=== PATIENT | female | born 2000 | race Caucasian/White ===

== ENCOUNTER 2022-09-25 15:17 | Emergency (ER) | payer BC, MEDICAID, SELFPAY ==
[2022-09-25] MEDS ORDERED: Ondansetron PF 4 MG/2 ML Vial ONE (16:02)
[2022-09-25 16:19] LABS: #Basophils 0.1 10x3/uL (0.0-0.2); #Monocytes 0.8 10x3/uL (0.0-1.1); #Neutrophils 8.4 10x3/uL (1.5-8.4); %Basophils 0.4 % (0.0-2.0); %Eosinophils 0.2 % (0.0-6.0); %Lymphocytes 21.4 % (18.0-47.0); %Neutrophils 70.7 % (40.0-75.0); Hemoglobin 12.5 g/dL (12.0-15.5); Mean Corpuscular HGB CONC 33.2 g/dL (32.0-36.0); Mean Corpuscular Hemoglobin 26.1 pg (27.0-33.0); Mean Corpuscular Volume 78.5 fl (81.6-98.3); Mean Platelet Volume 9.6 fl (7.4-10.4); Platelet Count 366 10x3/uL (150-450); RBC Distribution Width 13.7 % (11.5-14.5); Red Blood Cell (RBC) Count 4.79 10x6/uL (3.90-5.03); White Blood Cell (WBC) Count 11.9 10x3/uL (3.5-10.5)
[2022-09-25 16:45] LABS: ALT (SGPT) 31 U/L (8-55); AST (SGOT) 19 U/L (5-34); Albumin 4.1 g/dL (3.5-5.0); Alkaline Phosphatase 52 U/L (40-110); Anion Gap 11 mmol/L (10-20); BUN (Urea Nitrogen) 7 mg/dL (7.0-18.7); Bilirubin, Total 0.4 mg/dL (0.2-1.2); Calc. Creatinine Clearance 0 mL/min (70-130); Calcium 9.1 mg/dL (7.8-10.44); Carbon Dioxide 23 mmol/L (22-29); Chloride 106 mmol/L (98-107); Estimated GFR 126; Globulin 2.9 g/dL (2.4-3.5); Glucose 82 mg/dL (70-105); Magnesium 1.8 mg/dL (1.6-2.6); Potassium 3.7 mmol/L (3.5-5.1); Sodium 136 mmol/L (136-145)
== END 2022-09-25 17:29 | disposition home or self-care (01) ==
LOC: CSHERS 15:17
DX: O21.0 Mild hyperemesis gravidarum (principal); O9A.211 Injury, poisoning and certain other consequences of external causes complicating pregnancy, first trimester; T63.301A Toxic effect of unspecified spider venom, accidental (unintentional), initial encounter; O99.711 Diseases of the skin and subcutaneous tissue complicating pregnancy, first trimester; L03.116 Cellulitis of left lower limb; Z87.891 Personal history of nicotine dependence; Z3A.01 Less than 8 weeks gestation of pregnancy
CPT/HCPCS: 80053; 83735; 85025; 96361; 96374; J2405

== ENCOUNTER 2023-04-04 23:02 | Emergency (ER) | payer MEDICAID, OTHER ==
[2023-04-04] MEDS ORDERED: Ondansetron ODT 4 MG TAB ONE (23:19)
[2023-04-05 00:17] LABS: SARS-CoV-2 NAA Rapid Test Not Detected (NotDetected)
== END 2023-04-05 00:36 | disposition home or self-care (01) ==
LOC: CSHERS 23:02
DX: O99.891 Other specified diseases and conditions complicating pregnancy (principal); R05.9 Cough, unspecified; R40.0 Somnolence; Z87.891 Personal history of nicotine dependence; Z3A.34 34 weeks gestation of pregnancy
CPT/HCPCS: 71045; Q0162

== ENCOUNTER 2023-05-09 07:56 | Inpatient (IN) | payer OTHER ==
[2023-05-09] MEDS ORDERED: Misoprostol 200 MCG TAB PR PRN (08:49)
[2023-05-09] MEDS ORDERED: Carboprost 250 MCG/ML AMP IM PRN (08:49)
[2023-05-09] MEDS ORDERED: Methylergonovine 0.2 MG/ML VIAL IM PRN (08:49)
[2023-05-09] MEDS ORDERED: Promethazine HCl 25 MG/ML VIAL IM PRN ×2 (08:49→11:44)
[2023-05-09] MEDS ORDERED: hydrALAZINE 20 MG/ML VIAL SLOW IVP PRN (08:49)
[2023-05-09] MEDS ORDERED: HYDROcodone/Acetaminophen 5/325 mg Tablet PO PRN (08:49)
[2023-05-09] MEDS ORDERED: Lidocaine 1% (PF) 30 ML VIAL SC PRN (08:49)
[2023-05-09] MEDS ORDERED: Diphenoxylate HCl/Atropine Tablet PO PRN (08:49)
[2023-05-09] MEDS ORDERED: fentaNYL 50 mcg/mL 1 mL Vial SLOW IVP PRN (08:49)
[2023-05-09] MEDS ORDERED: Tranexamic Acid 1,000 MG/10 ML VIAL IVP PRN (08:49)
[2023-05-09] MEDS ORDERED: Ibuprofen 800 MG TAB PO PRN (08:49)
[2023-05-09] MEDS ORDERED: Oxytocin 30 units/NS 500 ML 500 ML IV SCH ×2 (09:00)
[2023-05-09] MEDS: Lactated Ringer's 1,000 ML IV SCH (09:15)
[2023-05-09 09:19] VITALS: BMI 39.1
[2023-05-09] MEDS: fentaNYL/Ropivacaine Epidural 100 ML ONE (09:43)
[2023-05-09] MEDS: fentaNYL 2 mcg/Ropivacaine 0.2% Epidural 100 ML CADD EPIDURAL SCH (09:44)
[2023-05-09 09:47] LABS: Hematocrit 34.8 % (34.9-44.5); Hemoglobin 11.8 g/dL (12.0-15.5); Mean Corpuscular HGB CONC 33.9 g/dL (32.0-36.0); Mean Corpuscular Hemoglobin 25.7 pg (27.0-33.0); Mean Corpuscular Volume 75.8 fl (81.6-98.3); Mean Platelet Volume 10.6 fl (7.4-10.4); Platelet Count 371 10x3/uL (150-450); RBC Distribution Width 14.4 % (11.5-14.5); Red Blood Cell (RBC) Count 4.59 10x6/uL (3.90-5.03); White Blood Cell (WBC) Count 13.8 10x3/uL (3.5-10.5)
[2023-05-09 10:29] LABS: HBSAg Index 0.25 S/CO (0-0.99); Hep B Surf Ag - L&D Non-Reactive S/CO (NonReactive)
[2023-05-09 10:30] LABS: Syphilis Antibody Nonreactive (Nonreactive); Syphilis Antibody Index 0.04 S/CO (<1.00 Non-Reactive)
[2023-05-09] MEDS: Ondansetron PF 4 MG/2 ML Vial IVP PRN (10:57)
[2023-05-09] MEDS ORDERED: Acetaminophen 325 MG TAB PO PRN (11:44)
[2023-05-09] MEDS ORDERED: Naloxone HCl 0.4 mg/ml Vial IVP PRN ×2 (11:44)
[2023-05-09] MEDS ORDERED: diphenhydrAMINE 50 MG/ML VIAL IVP PRN (11:44)
[2023-05-09] MEDS ORDERED: Ondansetron PF 4 MG/2 ML Vial IVP PRN (11:44)
[2023-05-09] MEDS ORDERED: Moisturizing Cream (Eucerin) 113 GM JAR TOP PRN (11:44)
[2023-05-09] MEDS ORDERED: Lactated Ringer's 500 ML IV PRN (11:44)
[2023-05-09] MEDS ORDERED: ePHEDrine Sulfate 50 MG/10 ML VIAL SLOW IVP PRN (11:44)
[2023-05-09] MEDS ORDERED: Communication Order-Pharmacy FS SCH (11:45)
[2023-05-09 11:49] LABS: Creatinine, Urine 205.8 mg/dL (47-110)
[2023-05-09 12:15] LABS: ALT (SGPT) 23 U/L (8-55); AST (SGOT) 16 U/L (5-34); Albumin 3.4 g/dL (3.5-5.0); Alkaline Phosphatase 1492 U/L (40-110); Anion Gap 16 mmol/L (10-20); BUN (Urea Nitrogen) 9 mg/dL (7.0-18.7); Bilirubin, Total 0.2 mg/dL (0.2-1.2); Calc. Creatinine Clearance 265 mL/min (70-130); Calcium 8.6 mg/dL (7.8-10.44); Carbon Dioxide 17 mmol/L (22-29); Chloride 107 mmol/L (98-107); Estimated GFR 130; Globulin 2.8 g/dL (2.4-3.5); Glucose 93 mg/dL (70-105); Potassium 4.3 mmol/L (3.5-5.1); Protein, Total 6.2 g/dL (6.0-8.3); Sodium 136 mmol/L (136-145)
[2023-05-09] MEDS: Oxytocin 30 units/NS 500 ML 500 ML IV SCH (13:03)
[2023-05-09] MEDS: Acetaminophen 500 MG TAB PO PRN (19:13)
[2023-05-09] MEDS: Ampicillin 2 GM VIAL ONE (19:25)
[2023-05-09] MEDS ORDERED: Ampicillin 2 GM in Sodium Chloride 0.9% 100 ML IVPB SCH (19:30)
[2023-05-09] MEDS: SODIUM CHLORIDE IVPB SCH (20:01)
[2023-05-09] MEDS: ADMIXTURE FEE IVPB SCH (20:01)
[2023-05-09] MEDS: GENTAMICIN IVPB SCH (20:01)
[2023-05-10] MEDS ORDERED: diphenhydrAMINE 25 MG CAP PO PRN (01:34)
[2023-05-10] MEDS ORDERED: Bisacodyl 10 MG SUPP PR PRN (01:34)
[2023-05-10] MEDS ORDERED: Ondansetron PF 4 MG/2 ML Vial IVP PRN (01:34)
[2023-05-10] MEDS ORDERED: Lanolin Ointment 7 GM TUBE TOP PRN (01:34)
[2023-05-10] MEDS ORDERED: Benzocaine-Menthol 82.5 ML CAN TOP PRN (01:34)
[2023-05-10] MEDS ORDERED: hydrALAZINE 20 MG/ML VIAL SLOW IVP PRN (01:34)
[2023-05-10] MEDS ORDERED: Milk Of Magnesia 30 ML UDCUP PO PRN (01:34)
[2023-05-10] MEDS ORDERED: HYDROcodone/Acetaminophen 5/325 mg Tablet PO PRN (01:34)
[2023-05-10] MEDS: Ampicillin 2 GM in Sodium Chloride 0.9% 100 ML IVPB SCH (05:00)
[2023-05-10] MEDS: Ibuprofen 800 MG TAB PO SCH (05:07)
[2023-05-10] MEDS: Docusate 100 MG CAP PO SCH (08:23)
[2023-05-10] MEDS: Prenatal Vitamin 1 TAB PO SCH (08:23)
[2023-05-10] MEDS: Ferrous Sulfate 325 MG TAB PO SCH (08:23)
[2023-05-10] MEDS: Boostrix 0.5 ML (Tdap) VIAL (>/=7 yrs of age) IM ONE (08:58)
[2023-05-11 07:21] VITALS: BP 125/57; TEMP 98.3
== END 2023-05-11 15:05 | disposition home or self-care (01) | DRG 806 ==
LOC: CSHLD/OP 07:56 → CSHLD 09:40 → CSHPED 05-10 00:30
PROVIDERS: ADMIT Family Medicine; ATTEND Family Medicine
PROC: 10E0XZZ Delivery of Products of Conception, External Approach (ICD-10-PCS; principal; 2023-05-09)
PROC: 10907ZC Drainage of Amniotic Fluid, Therapeutic from Products of Conception, Via Natural or Artificial Opening (ICD-10-PCS; 2023-05-09)
PROC: 0UQMXZZ Repair Vulva, External Approach (ICD-10-PCS; 2023-05-09)
PROC: 0UQGXZZ Repair Vagina, External Approach (ICD-10-PCS; 2023-05-09)
DX: O71.82 Other specified trauma to perineum and vulva (principal); O71.4 Obstetric high vaginal laceration alone; Z37.0 Single live birth; Z3A.39 39 weeks gestation of pregnancy; Z91.040 Latex allergy status
CPT/HCPCS: 36415; 51702; 80053; 82570; 84156; 85027; 86780; 86850; 86900; 86901; 87340; 88307; 99285; J0290; J1580; J2405; J2590; J3490; J7120

== ENCOUNTER 2024-02-12 22:16 | Emergency (ER) | payer OTHER | END 2024-02-13 05:27 | disposition home or self-care (01) | LOC: CSHERS 22:16 | DX: J04.0 Acute laryngitis (principal); I10 Essential (primary) hypertension; F17.290 Nicotine dependence, other tobacco product, uncomplicated; Z79.82 Long term (current) use of aspirin | CPT/HCPCS: 99283 ==

== ENCOUNTER 2024-04-16 21:56 | Emergency (ER) | payer OTHER | END 2024-04-16 22:19 | disposition home or self-care (01) | LOC: CSHERS 21:56 | DX: R55 Syncope and collapse (principal); F41.9 Anxiety disorder, unspecified; R06.4 Hyperventilation; T43.225A Adverse effect of selective serotonin reuptake inhibitors, initial encounter; I10 Essential (primary) hypertension; F17.290 Nicotine dependence, other tobacco product, uncomplicated; Z79.82 Long term (current) use of aspirin; Z79.899 Other long term (current) drug therapy | CPT/HCPCS: 93005 ==